=== PATIENT | male | born 1950 | race Caucasian/White ===

== ENCOUNTER 2018-03-10 11:34 | Emergency (ER) | payer MEDICARE, MEDICAID ==
[2018-03-10] MEDS: FLUORESCEIN STRIP RIGHT EYE (12:43)
[2018-03-10] MEDS: ACYCLOVIR 800 MG TAB PO (12:44)
[2018-03-10] MEDS: HYDROCODONE/APAP (5/325) TAB PO (12:44)
== END 2018-03-10 13:15 | disposition home or self-care (01) ==
LOC: FTE 11:34
DX: B02.9 Zoster without complications (principal)
CPT/HCPCS: 99283